=== PATIENT | female | born 1955 | race Caucasian/White ===

== ENCOUNTER 2020-11-26 20:12 | Emergency (ER) | payer MEDICARE, OTHER, SELFPAY ==
[2020-11-26 20:12] VITALS: BP 158/84; PULSE 110; RESP 18; TEMP 36.4; O2SAT 95; BMI 29.9
--- NOTE | 2020-11-26 20:46 | ED.VISSUMM ---
- ER Visit Summary Date of Service: 11/26/20 Chief Complaint: Left lower extremity pain History of Present Illness: The patient is a 65 F who presents with pain in her left lower extremity that began today. Patient describes the pain as aching. Patient states it feels like she has shinsplints going all the way down her leg. Patient states it is worse whenever she lays down or sits. Patient states that feels somewhat better when she is up ambulating. Patient admits to some feelings of weakness in her left leg. Patient is able to ambulate however. Patient denies any paresthesias. Patient admits to some pain in her low back. Patient admits to nausea but denies any vomiting. Patient denies any trauma or injury. 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 Physical Examination: Vital signs are stable. Patient is afebrile. Patient is in no acute distress. Oral mucosa is pink and moist. Neck is supple. Trachea is midline. There is no JVD. Heart was regular rate and rhythm. Lungs are clear and equal bilaterally. Abdomen is soft. Bowel sounds are normal. There is no tenderness. Musculoskeletal exam reveals tenderness over the left lower extremity. There is no edema or ecchymosis. There is no deformity. There is mild calf tenderness. There is some tenderness over the posterior hip on the left. There is no pain with internal and external rotation of the left hip. Deep tendon reflexes are 2+/4 bilaterally in the lower extremities. There are no sensory deficits noted. Pedal pulses are equal bilaterally. Strength is 5/5 bilaterally in the lower extremities. Test Results: CBC and comprehensive metabolic profile were obtained and were essentially within normal limits. X-rays of the left femur were obtained. There are 4 views. On my interpretation, there is no acute fracture. There is no mass. X-rays of the left tibia-fibula were obtained. There are 3 views. On my interpretation, there is no acute fracture or dislocation. There is no soft tissue swelling. There is no mass. Radiologist also interpreted the x-rays in degrees. Venous duplex of the left lower extremity was obtained. There is no evidence of DVT. This was interpreted by the radiologist and reviewed by myself. Emergency Department Course and Treatment: Patient was given a dose of morphine. Patient was given her first dose of prednisone. Patient was feeling somewhat better on reevaluation. Patient was given prescriptions for prednisone and Percocet. Patient was instructed to follow-up with her primary care physician and oncologist in 5 to 7 days. Patient understood and was agreeable with the plan. All questions were answered. Disposition: Discharge home Impression: 1. Left lower extremity pain This note was generated with [employer] dictation software. It may contain incorrect words, spelling, and punctuation that were not noted in review of the chart prior to signing ED Disposition - Plan for ED Patient: Disposition: Home or Assisted Living Diagnosis: Left leg pain, Sciatica of left side Instructions: ED Sciatica, ED Pain, Acute, Uncertain Cause Prescriptions: Oxycodone HCl/Acetaminophen [Percocet 5/325] 1 tablet PO Q6H PRN PRN 3 Days #12 tab PRN Reason: Pain Prescription Printed predniSONE tablet 60 mg PO DAILY #12 tab Prescription Printed Referrals: Jamey Malik MD [Primary Care Provider] - 5-7 Days
--- NOTE | 2020-11-26 20:47 | US_ITS ---
STUDY: VENOUS DOPPLER ULTRASOUND - LEFT LOWER EXTREMITY REASON FOR EXAM: Female, 65 years old. LT LATERAL LEG PAIN FROM HIP TO FOOT TECHNIQUE: Ultrasound evaluation of the deep vein system to include reynolds-scale imaging and compression was performed. Reynolds-scale imaging and Doppler sonographic evaluation, including duplex spectral analysis and qualitative color flow sonography, was performed. COMPARISON: None. FINDINGS: Common Femoral Vein: Normal compression, spontaneity and augmentation. Normal color Doppler. Common Femoral Vein/Greater Saphenous Junction: Normal compression. Femoral Proximal: Normal compression. Femoral Middle: Normal compression, spontaneity and augmentation. Normal color Doppler. Femoral Distal: Normal compression. Popliteal Vein: Normal compression, spontaneity and augmentation. Normal color Doppler. Posterior Tibial Vein: Normal compression. Peroneal Vein: Normal compression. US/Venous Duplex Imag/Limited/Uni IMPRESSION: Normal venous Doppler ultrasound of the lower extremity. Electronically Signed: Melissa Clifford MD at 21:52 EDT , Service support ,
[2020-11-26] MEDS: Morphine 4 MG/ML Syringe IV (21:00)
--- NOTE | 2020-11-26 21:00 | RAD_ITS ---
STUDY: X-RAY - LEFT TIBIA AND FIBULA REASON FOR EXAM: Female, 65 years old. Injury/Pain TECHNIQUE: 2 view(s) of the tibia and fibula were obtained. COMPARISON: None. FINDINGS: Normal visualized tibia. Normal visualized fibula. There is no demonstrated acute fracture. The soft tissue structures are unremarkable. RAD/Tibia & Fibula 2 Views IMPRESSION: Normal x-ray examination of the tibia and fibula. Electronically Signed: Melissa Clifford MD at 21:39 EDT , Service support ,
--- NOTE | 2020-11-26 21:00 | RAD_ITS ---
INDICATION: Injury/Pain EXAMINATION/TECHNIQUE: X-RAY - LEFT XR Femur 4 Views COMPARISON: None. FINDINGS: No acute fracture or malalignment. No blastic or lytic lesions. Mild degenerative changes of the left hip and pubic symphysis. The soft tissues are unremarkable. RAD/Femur Min 2 Views IMPRESSION: No acute radiographic abnormalities. Mild degenerative changes of the left hip and pubic symphysis. Electronically Signed: Wilberto Yancey MD at 21:33 EDT Tel , Service support ,
[2020-11-26 21:22] LABS: Absolute Lymphocyte Count 1.17 X10^3/uL (0.83-4.51); Absolute Neutrophil Count 4.2 X10^3/uL (2.0-7.7); Basophil# 0.05 X10^3/uL; Basophil% 0.8 % (0-1); Eosinophil# 0.17 X10^3/uL; Eosinophils% 2.7 % (0-5); Hematocrit 38.5 % (37-47); Hemoglobin 12.9 g/dL (12.0-15.0); Lymphocyte # 1.17 X10^3/ul (4.0); Lymphocyte % 18.4 % (19-41); Mean Corp Hgb Conc 33.5 g/dL (32-36); Mean Corpuscular Hgb 31.7 pg (27.0-32.0); Mean Corpuscular Volume 94.6 fL (81-99); Mean Platelet Vol. 11.2 fl (6.2-12.0); Monocyte# 0.78 X10^3/uL; Monocyte% 12.3 % (0-10); NRBC Flagged by Analyzer 0 % (0-5); Neutrophil # 4.18 X10^3/uL (2.7-7.7); Neutrophil % 65.6 % (47-70); Platelet Count 223 K/mm3 (150-450); RBC Distribution Width SD 45.1 fl (35.1-43.9); Red Blood Count 4.07 M/mm3 (4.2-5.4); White Blood Count 6.4 K/mm3 (4.4-11.0)
[2020-11-26 21:35] LABS: ALB/GLOB Ratio 1.3 RATIO (0.9-2.4); AST(SGOT) 26 U/L (15-37); Alanine Aminotransfer ALT/SGPT 36 U/L (13-56); Albumin, Serum 4.2 g/dL (3.2-5.0); Alkaline Phosphatase 141 U/L (45-117); Anion Gap 11 (5-15); BUN 17 mg/dL (7-18); BUN/Creat Ratio 21.6 RATIO (10-20); Calcium,Total 9.1 mg/dL (8.5-10.1); Chloride 106 mmol/L (98-107); Creatinine, Serum 0.79 mg/dL (0.55-1.02); EST Glomerular Filtration Rate 77 mL/min (>60); Est Glom Filt Rate - Afr Amer 94 mL/min (>60); Estimated Creatinine Clearance 49.12 ml/min; Globulin 3.3 g/dL (2.2-4.2); Glucose 117 mg/dL (74-106); Potassium 3.9 mmol/L (3.5-5.1); Protein, Total 7.5 g/dL (6.4-8.2); Sodium Level 139 mmol/L (136-145)
[2020-11-26] MEDS: predniSONE 20 MG Tablet 60 MG PO (22:09)
[2020-11-26] MEDS: HYDROcodone Bitartrate/Apap 5/325 Tablet PO (22:46)
[2020-11-26 22:49] VITALS: RESP 16
== END 2020-11-26 22:55 | disposition home or self-care (01) ==
PROVIDERS: Emergency Provider Emergency Medicine; PCP Family Medicine
DX: M79.605 Pain in left leg (principal); M54.42 Lumbago with sciatica, left side; I10 Essential (primary) hypertension; Z79.899 Other long term (current) drug therapy
CPT/HCPCS: 73552; 73590; 80053; 85025; 93971; 96374; 99283; A4216

== ENCOUNTER → 2021-01-26 | Outpatient (CLI) | payer MEDICARE, OTHER, SELFPAY ==
--- NOTE | 2021-01-26 | LES_PTH ---
PATIENT: EDELMIRA SEWELL LOC: [facility] U#:[id number] AGE/SX: 65/F ROOM: RE01/26/[address]: Dr. Maurilio Shultz MD : 1955 BED: DIS: 01/26/2021 SPEC #: [id number] RECD: 01/26/21 14:50 STATUS: RALPH REAmber #: [id number] ALON: 01/26/21 00:[address]: Maurilio Shultz DEPT: SURGICAL PATHOLOGY RECD BY: Nereida Mcclain ENTERED: 01/27/21 10:01 SP TYPE: Lesion OTHR DR: Dr. Jamye Malik MD Tissues: Skin of eyelid, NOS Procedures: Surgery Specimen Level IV HEADER OPERATION: Lesion removal left upper lid PRE-OP DIAGNOSIS: Lesion left upper lid TISSUE SUBMITTED: Lesion left upper lid MICROSCOPIC DIAGNOSIS Lesion of left upper eyelid, biopsy: Intradermal nevus. AM:maximino 01/28/2021 MICROSCOPIC DESCRIPTION Slides are reviewed. GROSS DESCRIPTION Received in fixative is one container labeled with the patient's name and designated left upper lid. The specimen consists of a light mckeon fragment of hair-bearing skin measuring 0.5 x 0.4 x 0.2 cm. The specimen is inked, bisected and totally submitted in one cassette. / AM:maximino 01/27/21 TC:5 CPT: 86547
== END | disposition home or self-care (01) ==
LOC: LABSPEC 15:13
PROVIDERS: PCP Family Medicine; Referring Provider Ophthalmology; Visit Provider Ophthalmology
DX: D22.121 Melanocytic nevi of left upper eyelid, including canthus (principal)
CPT/HCPCS: 88305

== ENCOUNTER 2023-06-11 07:51 | Emergency (ER) | payer MEDICARE, OTHER, SELFPAY ==
[2023-06-11 07:53] VITALS: BP 181/102; PULSE 112; RESP 16; TEMP 36.4; O2SAT 98; BMI 27.7
[2023-06-11 07:57] VITALS: BP 183/89; PULSE 81; RESP 12; O2SAT 98
--- NOTE | 2023-06-11 08:16 | EKG12_ITS ---
Test Reason : DIZZY Blood Pressure : / mmHG Vent. Rate : 086 BPM Atrial Rate : 086 BPM P-R Int : 174 ms QRS Dur : 096 ms QT Int : 390 ms P-R-T Axes : 033 -37 005 degrees QTc Int : 466 ms Sinus rhythm with Premature atrial complexes Left axis deviation Incomplete right bundle branch block Inferior infarct (cited on or before 13-JAN-1999) Abnormal ECG Confirmed by AUSTIN EDWARD, ALBARO ([id number]), book or script editor DANNY GUERRERO ([id number]) on 06/13/2023 10:39:23 AM Referred By: Confirmed By:ALBARO AVILA MD
--- NOTE | 2023-06-11 08:18 | EDS_ITS ---
HPI History of Present Illness Chief Complaint: Dizziness Informant: patient Narrative Narrative: Patient seen and evaluated with medical student. I independently performed entire history and exam. Patient states she has had elevated blood pressure and symptoms. Initially she states this has been off-and-on for maybe 3 weeks, but then it becomes clear she is talking more about her blood pressure. She then states with regards to the disequilibrium that she has been having issues for may be a week or more. However she states the first time she had disequilibrium was maybe a couple nights ago and then last night into this morning every time she gets up. When she is remaining still and lying in bed she does not have any dizziness at all. She has had no presyncope or syncope. She associates all the symptoms with her blood pressure, but then when asked the last time she had these issues, she states it was 25 years ago when she was admitted for palpitations and had a heart cath that was negative. She states normally her blood pressures in the 120s. She takes losartan 25 mg every day, but she did not take it yet this morning. She called her doctor and was advised to come back to the ER. She denies any vision changes, speech trouble, headaches, peripheral neurologic symptoms. [facility] Medical History (Updated 06/11/23 @ 11:[address] Ricky Martinez MD) Cancer HTN (hypertension) Home Medications diphenoxylate-atropine 2.5 mg-0.025 mg tablet 2 each PO Q6H PRN PRN Diarrhea 11/26/20 [History Last Taken Unknown] lorazepam 0.5 mg tablet 0.5 mg PO TID PRN PRN Anxiety 11/26/20 [History Last Taken Unknown] potassium chloride 20 mEq tablet,extended release 20 meq PO BID 11/26/20 [History Last Taken Unknown] telotristat ethyl 250 mg tablet 250 mg PO TID 11/26/20 [History Last Taken Unknown] losartan 25 mg tablet (Cozaar) 25 mg PO DAILY 06/11/23 [History Last Taken 06/10/23] Allergy/AdvReac Type Severity Reaction Status Date / Time No Known Allergies Allergy Verified 06/11/23 07:53 Social History Smoking Status: Never smoker ROS ROS ED Constitutional Constitutional ED: Denies chills or fever(s) Eyes Eyes: Denies blurry vision, change in vision or diplopia ENT ENT ED: Denies rhinorrhea or sore throat Cardiovascular Cardiovascular: Reports palpitations; Denies chest pain Respiratory/Chest Respiratory/Chest: Denies cough or dyspnea Gastrointestinal Gastrointestinal: Reports nausea; Denies abdominal pain, diarrhea or vomiting Genitourinary Genitourinary ED: Denies dysuria or hematuria Musculoskeletal Musculoskeletal: Denies back pain or neck pain Integumentary Denies abscess or rash Neurologic Neurologic: Reports disequilibrium; Denies headache(s), paresthesias or weakness Psychiatric Psychiatric: Denies anxiety or suicidal thoughts EXAM Physical Exam Const Vital Signs: 06/11/23 07:53 06/11/23 07:57 06/11/23 08:11 Temperature 97.6 F L Temperature Source Temporal Pulse Rate 112 H 81 Respiratory Rate 16 12 Respiratory Pattern Normal Blood Pressure 181/102 H 183/89 H Blood Pressure Mean 128 120 Pulse Ox 98 98 Oxygen Delivery Method Room Air Room Air 06/11/23 09:15 06/11/23 10:35 06/11/23 11:38 Temperature Temperature Source Pulse Rate 106 H Respiratory Rate 20 H Respiratory Pattern Blood Pressure 176/96 H 166/84 H 169/76 H Blood Pressure Mean 122 111 107 Pulse Ox 97 97 Oxygen Delivery Method Room Air Room Air Positive well nourished and well developed General Appearance ED: well developed and NAD HEENT Reports moist mucous membranes normocephalic and atraumatic Eyes PERRL and EOMs intact bilaterally Neck full ROM and supple Resp normal respiratory effort and clear to auscultation bilaterally Cardio regular rate, regular rhythm and no murmurs GI non-tender and non-distended Auscultation: normoactive bowel sounds Palpation: soft Back/Spine no CVA tenderness General Back: other FROM Extremity normal to inspection General Extremety ED: Negative for edema, pulses abnormal or tenderness General Extremity: Negative for edema or pulses abnormal Neuro oriented x3, CN's II-XII intact bilaterally and no sensory deficits noted Neuro Narrative: Normal speech. Normal amfodw-[id number] and sswk-[id number] bilaterally. NIHSS 0. Sensorium / Orientation: awake and alert Motor Exam: strength 5/5 throughout Psych mental status grossly normal Skin no rashes or lesions noted and no wounds MDM MDM MDM Narrative Medical decision making narrative: Blood pressure is in the 180s on several measurements here in the ER. She is well-appearing, in a sinus rhythm on the monitor in the 80s, no ectopy on my e valuation but we are keeping an eye on her rhythm during her visit. No history of any echocardiogram in our system. Initially given hydralazine 10 mg while we performed a work-up including a CT of the head to evaluate for the possibility of central etiologies of disequilibrium/vertigo. She does not have gee vertiginous symptoms. Very difficult to nail down when she has had symptoms and for how long, because I cannot get a straight answer from the patient since she keeps associating everything as a result of her elevated blood pressure, which may or may not be the case. After the hydralazine her blood pressure really was not measurably very different, so she was given another dose in addition to her morning dose of losartan. Her work-up is unremarkable including CT of the brain, showing no history of recent stroke that could be causing the symptoms, given that her symptoms of been going on for at least a couple days I do not think she needs an emergent MRI or CT angiography. I reviewed the imaging and the radiology report which I agree with. After getting the losartan, blood pressure still in the 160s and she was given another dose of hydralazine, she states she feels okay although her symptoms are still present, she does not want to stay to see if all of this helps and is okay going home. I am comfortable letting her go home, I see no evidence of acute cardiac injury or stroke, it certainly is possible her elevated pressure is the cause of the symptoms, before following up with her doctor I recommend doubling her losartan dose and following up closely as an outpatient. Lab Data Attestation: I reviewed the patient's lab results. Labs: Laboratory Results - last 24 hr 06/11/23 09:10 WBC 9.5 RBC 4.56 Hgb 12.9 Hct 41.1 MCV 90.1 MCH 28.3 MCHC 31.4 L RDW Std Deviation 42.8 RDW Coeff of Piyush 13.1 Plt Count 231 MPV 10.4 Immature Gran % (Auto) 0.400 Neut % (Auto) 83.0 H Lymph % (Auto) 10.9 L [place] % (Auto) 4.8 Eos % (Auto) 0.4 Baso % (Auto) 0.5 Absolute Neuts (auto) 7.9 H Absolute Lymphs (auto) 1.03 Nucleated RBC % 0 Sodium 140 Potassium 3.4 L Chloride 108 H Carbon Dioxide 24.0 Anion Gap 8 BUN 7 Creatinine 0.72 Estim Creat Clear Calc 49.00 Est GFR (MDRD) Af Amer 102 Est GFR (MDRD) Non-Af 85 BUN/Creatinine Ratio 9.7 L Glucose 110 H Calcium 8.9 Troponin I High Sens 8 Radiography Diagnostic Testing: Clinical Impression(s) from Imaging Studies Brain CT 06/11/23 09:30 IMPRESSION: Negative Brain CT without contrast. Electronically Signed: Eladio Marin MD at 9:42 EDT , Rhythm Strip Rhythm Strip: Sinus Rhythm Rate: 82 Ectopy: None EKG Initial EKG: Attestation: I personally reviewed and interpreted this EKG as follows: Interpretation: Sinus Rhythm, No Acute Injury Pattern and LAFB Comments: RSR' Prior EKG tracings: available for review Prior: Unchanged Discharge Plan Triage Chief Complaint: Dizziness ED Provider: Ricky Martinez Dx/Rx/DC Orders Clinical Impression: Accelerated hypertension, Dysequilibrium Instructions: ED Dizziness, Uncertain Cause, ED Hypertension, Established Prescriptions: No Action diphenoxylate-atropine 1 EACH tablet 2 each PO Q6H PRN PRN (Reason: Diarrhea) lorazepam 0.5 MG tablet 0.5 mg PO TID PRN PRN (Reason: Anxiety) potassium chloride 20 MEQ tablet extended release 20 meq PO BID telotristat ethyl 250 MG tablet 250 mg PO TID losartan [Cozaar] 25 mg tablet 25 mg PO DAILY Primary Care Provider: Jamey Malik Referrals: Jamey Malik MD [Primary Care Provider] - As soon as possible Activity Restrictions/Additional Instructions: Double your losartan until you follow-up with your doctor and consider keeping a diary of blood pressure and symptoms to see if they coincide. For today, take your usual 25 mg when you get home, which will be added to the 25 mg you were given in the emergency department. Disposition Disposition: Home, Self Care
[2023-06-11 09:15] VITALS: BP 176/96; O2SAT 97
[2023-06-11] MEDS: hydrALAZINE 20 MG/ML Vial 10 MG IV ×2 (09:18→10:36)
[2023-06-11 09:22] LABS: Absolute Lymphocyte Count 1.03 X10^3/uL (0.83-4.51); Absolute Neutrophil Count 7.9 X10^3/uL (2.0-7.7); Basophil# 0.05 X10^3/uL; Basophil% 0.5 % (0-1); Eosinophil# 0.04 X10^3/uL; Eosinophils% 0.4 % (0-5); Hematocrit 41.1 % (37-47); Hemoglobin 12.9 g/dL (12.0-15.0); Lymphocyte # 1.03 X10^3/ul (0.83-4.51); Lymphocyte % 10.9 % (19-41); Mean Corp Hgb Conc 31.4 g/dL (32-36); Mean Corpuscular Hgb 28.3 pg (27.0-32.0); Mean Corpuscular Volume 90.1 fL (81-99); Mean Platelet Vol. 10.4 fl (6.2-12.0); Monocyte# 0.45 X10^3/uL; Monocyte% 4.8 % (0-10); NRBC Flagged by Analyzer 0 % (0-5); Neutrophil # 7.86 X10^3/uL (2.7-7.7); Platelet Count 231 K/mm3 (150-450); RBC Distribution Width CV 13.1 % (11.6-14.6); RBC Distribution Width SD 42.8 fl (35.1-43.9); Red Blood Count 4.56 M/mm3 (4.2-5.4); White Blood Count 9.5 K/mm3 (4.4-11.0)
--- NOTE | 2023-06-11 09:30 | CT_ITS ---
INDICATION: dysequilibrium, high BP EXAMINATION: CT BRAIN - CT Head or Brain W/O Contrast Injection TECHNIQUE: Multiple axial images were obtained of the head without intravenous contrast. A radiation dose optimization technique was used for this scan. IV Contrast dosage and agent: None. RADIATION DOSAGE (If Supplied By Facility): CTDIvol = ( 44.99 ) mGy, DLP = ( 812.98 ) mGycm COMPARISON: FINDINGS: BRAIN PARENCHYMA: No intra- or extra-axial hemorrhage. No evidence of acute infarct. No intracranial mass or mass effect. There is preservation of the alonso/white matter interface. Posterior fossa structures are unremarkable. CSF SPACES: Appropriate for age. No hydrocephalus. Basal cisterns are patent. CALVARIUM, SKULL BASE, PARANASAL SINUSES AND MASTOID AIR CELLS: Clear. No discrete lytic or blastic abnormalities. ORBITS: Both globes, extraocular muscles, optic nerves and retrobulbar fat appear unremarkable. ASPECTS Score for Acute Strokes: 10 CT/Brain/Head without Contrast IMPRESSION: Negative Brain CT without contrast. Electronically Signed: Eladio Marin MD at 9:42 EDT ,
[2023-06-11 09:39] LABS: Anion Gap 8 (5-15); BUN 7 mg/dL (7-18); BUN/Creat Ratio 9.7 RATIO (10-20); Calcium,Total 8.9 mg/dL (8.5-10.1); Chloride 108 mmol/L (98-107); Creatinine, Serum 0.72 mg/dL (0.55-1.02); EST Glomerular Filtration Rate 85 mL/min (>60); Est Glom Filt Rate - Afr Amer 102 mL/min (>60); Glucose 110 mg/dL (74-106); Potassium 3.4 mmol/L (3.5-5.1); Sodium Level 140 mmol/L (136-145); Troponin-I HS 8 pg/mL (3.0-54.0)
[2023-06-11 10:35] VITALS: BP 166/84
[2023-06-11] MEDS: Losartan Potassium 25 MG Tablet PO (11:12)
[2023-06-11 11:38] VITALS: BP 169/76; PULSE 106; RESP 20; O2SAT 97
[2023-06-11 12:02] VITALS: BP 164/79; PULSE 104; RESP 18; O2SAT 98
== END 2023-06-11 12:03 | disposition home or self-care (01) ==
PROVIDERS: Emergency Provider Emergency Medicine; PCP Family Medicine; Visit Provider Emergency Medicine
DX: I10 Essential (primary) hypertension (principal); R42 Dizziness and giddiness; Z79.899 Other long term (current) drug therapy
CPT/HCPCS: 70450; 80048; 84484; 85025; 93005; 96374; 96375; 99284; A4216